=== PATIENT | female | born 1930 | race African-American/Black ===

== ENCOUNTER 2020-02-11 17:10 | Observation (INO) ==
[2020-02-11] MEDS ORDERED: SODIUM CHLORIDE 0.9% 1,000 ML IV STA ×2 (17:40→18:49)
[2020-02-11 18:04] LABS: Basophils % 0.1 % (0.0-0.8); Hematocrit 20.1 VOL% (35.7-47.0); Hemoglobin 7.4 GM/DL (12.0-16.0); Immature Granulocytes % 1.3 %; Immature Granulocytes Absolute 0.15 #; Lymphocytes # 0.3 10*3/uL (1.4-4.0); Lymphocytes % 2.4 % (21.3-54.2); Mean Corpuscular HGB Conc 36.8 GM/DL (32-36); Mean Corpuscular Volume 74.7 FL (87-102); Monocytes % 0.9 % (1.7-12.7); NRBC # 0.68 10*3/uL; Neutrophils % 95.3 % (38.7-73.9); Platelet Count 96 T/CUMM (130-400); Red Blood Count 2.69 MC/CUMM (3.8-5.5); Red Cell Distribution Width 24.8 % (9.3-17.3); White Blood Count 11.9 T/CUMM (4-12)
[2020-02-11] MEDS ORDERED: ATROPINE 1 MG/10 ML SYRINGE ONE (18:04)
[2020-02-11 18:11] LABS: INR 1.3; PT Patient Result 13.9 SECS (9.8-11.9); Partial Thromboplastin Time 40.1 SECS (23.9-33.8)
[2020-02-11 18:14] LABS: CKMB % 7.1 %; Troponin I < 0.015 NG/ML (0.00-0.045)
[2020-02-11 18:46] LABS: Albumin 1.4 G/DL (3.4-5.0); Calcium 8.6 MG/DL (8.5-10.1); Osmolality,Calculated 316.4 MOS/KG (273-304); Total Protein 4.9 G/DL (6.4-8.3)
[2020-02-11 18:48] LABS: Bilirubin,Total 21.7 MG/DL (0.2-1.0)
[2020-02-11] MEDS ORDERED: ATROPINE 1 MG/10 ML SYRINGE IV STA ×2 (18:48→19:35)
[2020-02-11 18:49] LABS: Amorphous Crystals,Urine Occasional /HPF (Few); Bacteria,Urine Few /HPF (Few); Blood, Urine Small mg/dL (Negative); Glucose,Urine (UA) Negative (Negative); Ketones,Urine Negative (Negative); Nitrite,Urine Negative (Negative); Protein,Urine 30 MG/DL; Squamous Epithelial Cell,Urine Occasional /HPF (0-10); Urine Appearance CLOUDY (Clear); Urine Color Amber (Yellow); WBC,Urine 164 /HPF (0-6)
[2020-02-11 18:50] LABS: Bilirubin,Urine Moderate mg/dL (Negative)
[2020-02-11] MEDS ORDERED: SODIUM BICARBONATE 50 MEQ/50 ML VIAL IV STA (18:50)
[2020-02-11] MEDS ORDERED: VANCOMYCIN INJ 1,000 MG in SODIUM CHLORIDE 0.9% 250 ML IV STA (18:55)
[2020-02-11 19:04] LABS: Lymphocytes 2 % (20-55); Nucleated Red Blood Cells 11 (0-5); Segmented Neutrophils 96 % (50-85); Total Cells Counted 100
[2020-02-11 19:05] LABS: Acanthocytes 2+; Anisocytosis 3+; Hypochromasia 4+; Microcytosis 1+; Platelet Estimate Decreased; Target Cells 2+
[2020-02-11] MEDS ORDERED: LORazepam 2 MG/1 ML VIAL IV PRN (20:17)
[2020-02-11] MEDS ORDERED: MORPHINE 4 MG/1 ML VIAL IV PRN (20:17)
[2020-02-11] MEDS ORDERED: ATROPINE 1 % OPH SOLN 5 ML BOTTLE SL PRN (20:22)
[2020-02-12 01:58] VITALS: BP 76/45
== END 2020-02-12 06:43 | disposition expired ==
LOC: N.ED 17:10 → N.EDINP 17:10 → N.4E 02-12 00:33
PROVIDERS: ADMIT Family Medicine; ATTEND Family Medicine